=== PATIENT | female | born 1945 | race Caucasian/White ===

== ENCOUNTER → 2016-08-31 | Outpatient (CLI) | payer MEDICARE, OTHER ==
[~2016-08-31] MED LIST: ASPIRIN325 M1 PO; ASPIRIN81 M1 PO; CLEOCIN HCL300 M1 PO; FLEXERIL10 M1 PO; JANUVIA PO; LEXAPRO PO; LISINOPRIL PO; LISINOPRIL-HCTZ1 T14 PO; LOPRESSOR PO; LORTAB 5/500 TA1 TA1 PO; METFORMIN PO; MOTRIN600 M1 PO; PLAVIX PO; VICODIN 5/1 TAB 5/50 PO; VYTORIN 10/40 T1 TAB PO
--- NOTE | ~2016-08-31 | CT5 ---
[facility] A Service of [facility] RADIOLOGY TEXT RESULTS PATIENT: STEVEN LONG LOCATION: [facility] : 49 UNIT #: [id number] AGE: [address]: Danya Lai APRN SEX: F ORDER DR: [id number] [place] [id number] O MR#: [id number] Acc #: [id number] NAME: STEVEN LONG : 1945 SEX: F STUDY DATE/TIME: 08/31/2016 13:43 UNIT: [facility] ROOM: STUDY DESCRIPTION: CT Abdomen W Cont Attending Physician: Danya Lai A.P.R.N. Referring Physician: Danya Lai A.P.R.N. Ordering Physician: Danya Lai A.P.R.N. Primary Care Physician: Dayanara Phan M.D. MEDICAL IMAGING REPORT This report is preliminary unless electronic signature is present. EXAM Abdominal CT with contrast HISTORY Right upper quadrant abdominal pain for the past several years with an area of bulging. TECHNIQUE Axial images were obtained with oral and intravenous contrast. 100 mL of Isovue was used. This CT exam was performed with one or more of the following radiation dose reduction techniques: automatic exposure control, adjustment of mA and/or kV according to patient size, and iterative reconstruction. Comparison examination from 04/16/2013 FINDINGS There is mild fatty infiltration of the liver. The spleen, pancreas, kidneys and adrenals are unremarkable. 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 Atherosclerotic calcification of the aorta is noted. No distended bowel loops are seen. There is no evidence of retroperitoneal or mesenteric adenopathy. No hernias are noted. IMPRESSION Mild diffuse fatty infiltration of the liver. 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 No acute or inflammatory changes are noted. No significant change from previous scan. Dictated by... Fabrizio Blair M.D. [facility] A Service of [facility] RADIOLOGY TEXT RESULTS PATIENT: STEVEN LONG LOCATION: [facility] : 49 UNIT #: [id number] AGE: [address]: Danya Lai APRN SEX: F ORDER DR: THIS IS AN ELECTRONICALLY VERIFIED REPORT Fabrizio Blair M.D. at 09/01/2016 1:05 PM Mara TD: 09/01/2016 09:08 JOB #: [id number] MEDICAL IMAGING REPORT Page 1 of 1
[2016-08-31 14:51] LABS: POC - CREATININE 0.74 mg/dL (0.44-1.03); POC - GFR >60.0 mL/min (>60)
== END | disposition home or self-care (01) ==
LOC: SCT 12:30
PROVIDERS: Nurse Practitioner
DX: R10.9 Unspecified abdominal pain (principal); K76.0 Fatty (change of) liver, not elsewhere classified; I72.2 Aneurysm of renal artery
CPT/HCPCS: 74160; 82565; Q9967

== ENCOUNTER → 2016-09-08 | Outpatient (CLI) | payer MEDICARE, OTHER ==
--- NOTE | ~2016-09-08 | CT7 ---
[facility] A Service of [facility] RADIOLOGY TEXT RESULTS PATIENT: STEVEN LONG LOCATION: [facility] : 49 UNIT #: [id number] AGE: [address]: Danya Lai APRN SEX: F ORDER DR: [id number] [address] [address] [id number] O MR#: [id number] Acc #: [id number] NAME: STEVEN LONG : 1945 SEX: F STUDY DATE/TIME: 09/08/2016 12:06 UNIT: [facility] ROOM: STUDY DESCRIPTION: CT Abdomen Wo Cont Attending Physician: Danya Lai A.P.R.N. Referring Physician: Danya Lai A.P.R.N. Ordering Physician: Danya Lai A.P.R.N. Primary Care Physician: Dayanara Phan M.D. MEDICAL IMAGING REPORT This report is preliminary unless electronic signature is present. EXAM CT abdomen without contrast INDICATION Right-sided abdominal pain and swelling off and on for the past [address] of the abdomen. This CT examination was performed with one or more of the following radiation dose reduction techniques: automatic exposure control, adjustment of mA and/or kV according to patient size, and iterative reconstruction. COMPARISON Contrast-enhanced CT of the abdomen from 08/31/2016. FINDINGS Included lung bases are clear. Liver enlarged measuring 20.6 cm. No liver mass or splenic mass seen on the unenhanced CT. The adrenal glands, pancreas unremarkable unenhanced appearance. Gallbladder contracted otherwise unremarkable. There is a 3 mm nonobstructing calculus lower pole right kidney. 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 Small hiatal hernia. The included bowel loops are nondilated. No aggressive appearing bone lesion. IMPRESSION 1. No acute findings. 2. Hepatomegaly. 3. 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 4. Other findings are detailed above. [facility] A Service of [facility] RADIOLOGY TEXT RESULTS PATIENT: STEVEN LONG LOCATION: [facility] : 49 UNIT #: [id number] AGE: [address]: Danya Lai APRN SEX: F ORDER DR: Dictated by... Gregorio Don M.D. THIS IS AN ELECTRONICALLY VERIFIED REPORT Gregorio Don M.D. at 09/12/2016 9:54 AM HILLARY/tiffany TD: 09/08/2016 13:54 JOB #: [id number] MEDICAL IMAGING REPORT Page 1 of 1
== END | disposition home or self-care (01) ==
LOC: SRAD 10:53
DX: I72.2 Aneurysm of renal artery (principal); R16.0 Hepatomegaly, not elsewhere classified; N20.0 Calculus of kidney
CPT/HCPCS: 74150

== ENCOUNTER → 2016-11-02 | Outpatient (CLI) | payer MEDICARE, OTHER ==
[2016-11-02 13:18] LABS: ALBUMIN SERUM 4.4 g/dL (3.5-5.0); AST (SGOT) 49 U/L (10-42); BILIRUBIN,TOTAL 0.8 mg/dL (0.2-2.0); BLOOD UREA NITROGEN 15 mg/dL (9-23); CALCIUM SERUM 10.5 mg/dL (8.4-10.2); CARBON DIOXIDE 25 mmol/L (22-31); CHLORIDE 99 mmol/L (100-111); CREATININE SERUM 0.6 mg/dL (0.6-1.4); GLUCOSE FASTING 282 mg/dL (70-110); POTASSIUM 4.2 mmol/L (3.5-5.1); SODIUM 136 mmol/L (135-145)
[2016-11-02 13:19] LABS: ALKALINE PHOSPHATASE 75 U/L (32-92); ALT (SGPT) 53 U/L (10-40); CHOLESTEROL 243 mg/dL (0-200); HDL CHOLESTEROL 42 mg/dL (35-95); TRIGLYCERIDES 779 mg/dL (10-160)
[2016-11-04 01:22] LABS: MICROALB UR (PNL) 0.6 mg/dL (***)
== END | disposition home or self-care (01) ==
LOC: CLAB 11:49
PROVIDERS: Internal Medicine Endocrinology, Diabetes & Metabolism
DX: E11.65 Type 2 diabetes mellitus with hyperglycemia (principal); Z98.61 Coronary angioplasty status
CPT/HCPCS: 36415; 80053; 80061; 82043; 82570; 83036

== ENCOUNTER → 2016-11-04 | Outpatient (CLI) | payer MEDICARE, OTHER ==
--- NOTE | ~2016-11-04 | MY11 ---
[facility] A Service of [facility] RADIOLOGY TEXT RESULTS PATIENT: STEVEN LONG LOCATION: [facility] : 49 UNIT #: [id number] AGE: [address]: Danya Lai APRN SEX: F ORDER DR: [id number] [address] [address] [id number] O MR#: [id number] Acc #: [id number] NAME: STEVEN LONG : 1945 SEX: F STUDY DATE/TIME: 11/04/2016 11:00 UNIT: [facility] ROOM: STUDY DESCRIPTION: MY Mammogram Screening Dig James Attending Physician: Danya Lai A.P.R.N. Ordering Physician: Danya Lai A.P.R.N. Primary Care Physician: Dayanara Phan M.D. MEDICAL IMAGING REPORT This report is preliminary unless electronic signature is present. EXAM Digital screening mammogram 11/04/2016 HISTORY 71-year-old woman no risk elevation. Patient indicates bilateral breast pain comes and goes. Annual screen. COMPARISON Mammograms date to 10/02/2009 with most recent 10/30/2015. FINDINGS Digital imaging of each breast was completed utilizing a two-view examination of each breast in craniocaudal and mediolateral-oblique projections. Review and interpretation of digital mammograms include a second review in conjunction with FDA-approved CAD device. There is a normal parenchymal presentation bilaterally consistent with the patient's age. There are no breast masses imaged and no parenchymal asymmetry is visualized. There are no suspicious microcalcifications and I see no focal architectural disturbance. IMPRESSION Negative screening digital mammogram. One-year followup recommended. Patients over the age of 40 are entered into a reminder system with target due date for the next mammogram. A result letter will also be sent to the patient. BIRADS: 1 Negative Dictated by... [facility] A Service of [facility] RADIOLOGY TEXT RESULTS PATIENT: STEVEN LONG LOCATION: [facility] : 49 UNIT #: [id number] AGE: [address]: Danya Lai APRN SEX: F ORDER DR: Anthony Toledo M.D. THIS IS AN ELECTRONICALLY VERIFIED REPORT Anthony Toledo M.D. at 11/04/2016 1:00 PM ORTIZ/tiffany TD: 11/04/2016 12:26 JOB #: [id number] MEDICAL IMAGING REPORT Page 1 of 1
== END | disposition home or self-care (01) ==
LOC: SMAM 10-31 09:30
DX: Z12.31 Encounter for screening mammogram for malignant neoplasm of breast (principal)
CPT/HCPCS: G0202